=== PATIENT | female | born 1985 | race Caucasian/White ===

== ENCOUNTER 2021-10-31 08:59 | Outpatient (CLI) | payer BC, SELFPAY ==
[2021-10-31 10:03] LABS: Glucose 75GTT - Fasting 96 mg/dL (70-99)
[2021-10-31 10:19] LABS: Insulin 75GTT - Fasting 11.6 mU/L (2.6-37.6)
[2021-10-31 11:06] LABS: GGTP 14 U/L (5-55); Glucose 75GTT - 60 minutes 135 mg/dL (100-160)
[2021-10-31 11:06] LABS: Glucose 75GTT - 30 minutes 124 mg/dL (100-160)
[2021-10-31 11:07] LABS: Insulin 75GTT - 30 MIN 72.2 mU/L (Not Estab.)
[2021-10-31 11:23] LABS: Homocysteine 3.1 umol/L (3.2-10.7)
[2021-10-31 11:34] LABS: Insulin 75GTT - 60 min 90.7 mU/L (Not Estab)
[2021-10-31 12:53] LABS: Insulin 75GTT - 120 min 65.4 mU/L (Not Estab.)
[2021-10-31 13:00] LABS: Glucose 75GTT - 120 minutes 98 mg/dL (70-140)
[2021-11-07 01:06] LABS: Factor VIII Activity 64 % (56-140); von Willebrand Factor (vWF) Ag 100 % (50-200); von Willebrand Factor Activity 55 % (50-200)
[2021-11-07 14:29] LABS: Thyroid Peroxidase AB < 8 IU/mL (0-34); VWD Studies Interp Report Note (.)
== END 2021-10-31 23:59 | disposition home or self-care (01) ==
LOC: WOBLAB 09:04
PROVIDERS: Visit Provider Obstetrics & Gynecology
DX: E53.9 Vitamin B deficiency, unspecified (principal); E03.9 Hypothyroidism, unspecified; N92.0 Excessive and frequent menstruation with regular cycle; E78.2 Mixed hyperlipidemia; E28.8 Other ovarian dysfunction; R94.5 Abnormal results of liver function studies; Z82.49 Family history of ischemic heart disease and other diseases of the circulatory system; Z67.90 Unspecified blood type, Rh positive
CPT/HCPCS: 36415; 81291; 82951; 82952; 82977; 83090; 83525; 83921; 85240; 85245; 85246; 86141; 86376; 86900; 86901

== ENCOUNTER 2021-11-06 16:01 | Outpatient (CLI) | payer BC, SELFPAY ==
--- NOTE | 2021-11-06 16:45 | MRI_ITS ---
STUDY: MR PELVIS WITH T WITHOUT CONTRAST REASON FOR EXAM: Female, 35 years old. DEEP SEEDED ENDOMETRIOSIS TECHNIQUE: Standardized fat and water weighted pulse sequences were obtained in all 3 orthogonal planes, pre-and post contrast administration. 20ml of Dot contrast material was administered intravenously for the contrast portion of the examination. COMPARISON: None. FINDINGS: Decompressed urinary bladder. Normal visualized small intestine. Normal visualized colon. Normal visualized uterus. Vaginal gel noted in the vaginal canal. The vaginal fornices are identified confirmed adequate amount of vaginal gel. Tiny air bubbles are noted in the gel. There is smooth margination of the exocervical contour. There are Nabothian cysts of the cervix. No evidence for cervical endometriosis. No evidence for vaginal endometriosis. There is minimal fluid within the cul-de-sac consistent with a normal physiologic pelvic fluid. There is no pelvic mass lesion or lymphadenopathy. There are physiologic follicles of both ovaries. 26 mm dominant right ovary cyst. There are no vaginal cysts. Normal visualized pelvic arteries. Normal osseous structures. Normal abdominal wall. MRI/Pelvis W/WO Contrast IMPRESSION: There are Nabothian cysts of the cervix. No evidence for cervical endometriosis. There are no vaginal cysts. No evidence for vaginal endometriosis. No Deep endometrial implants noted in the colon. Electronically Signed: Dank Cash MD at 18:32 EST ,
== END 2021-11-06 23:59 | disposition home or self-care (01) ==
PROVIDERS: Visit Provider Obstetrics & Gynecology
DX: N91.5 Oligomenorrhea, unspecified (principal); N94.10 Unspecified dyspareunia; N92.0 Excessive and frequent menstruation with regular cycle
CPT/HCPCS: 72197; A9575

== ENCOUNTER 2021-12-04 15:55 | Outpatient (CLI) | payer BC, SELFPAY ==
--- NOTE | 2021-12-04 | IMM_PTH ---
PATIENT: BOB GEORGE LOC: [facility] U#:[id number] AGE/SX: 36/F ROOM: RE12/04/[address]: Dr. Ramya Mackenzie MD : 1985 BED: DIS: 12/04/2021 SPEC #: [id number] RECD: 12/07/21 07:38 STATUS: NOEMI LEWIS #: [id number] NAGI: 12/04/21 00:[address]: Ramya Tracy DEPT: IMMUNOHISTOCHEMISTRY RECD BY: Kenya Garcia Tissues: Endometrium, NOS Procedures: CD138 (initial) PHYSICIAN & INSTITUTION [place] [id number] SPECIMEN INFORMATION: Tissue Source: Endometrial biopsy Clinical Info: Rule out endometritis Specimen Number: [id number] CPT code: 79518 METHODOLOGY: Deparaffinized sections of prefer/formalin-fixed tissue or PAP/DQ stained slides are incubated with monoclonal/polyclonal antibodies/oligonucleotide probes. Localization is made via biotin free immunoperoxidase method. Appropriate controls are performed and reacted as expected. 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 They may not have been cleared or approved by the [place]. Food and Drug Administration. The FDA has determined that such clearance or approval is not necessary. INTERPRETATION: Endometrial biopsy: Rare plasma cell present. AM:sharri 12/07/2021
--- NOTE | 2021-12-04 14:15 | EMB_PTH ---
PATIENT: BOB GEORGE LOC: [facility] U#:[id number] AGE/SX: 36/F ROOM: RE12/04/[address]: Dr. Ramya Mackenzie MD : 1985 BED: DIS: 12/04/2021 SPEC #: [id number] RECD: 12/04/21 16:15 STATUS: NOEMI LEWIS #: [id number] NAGI: 12/04/21 14:[address]: Ramya Tracy DEPT: SURGICAL PATHOLOGY RECD BY: Leanne Choi Tissues: Endometrium, NOS Procedures: Surgery Specimen Level IV HEADER OPERATION: Endometrial biopsy PRE-OP DIAGNOSIS: Check CD138, rule out endometritis TISSUE SUBMITTED: Endometrial biopsy MICROSCOPIC DIAGNOSIS Endometrium, biopsy: Transition endometrium. See comment. AM:sharri 12/06/2021 COMMENT There is no evidence of chronic endometritis. Clinical correlation is suggested. Immunohistochemistry ([id number]) supports the above diagnosis. MICROSCOPIC DESCRIPTION Slides are reviewed. GROSS DESCRIPTION Received in fixative is one container labeled with the patient's name and designated endometrial biopsy. The specimen consists of multiple irregular and elongated fragments of light andersen soft tissue that in aggregate measure 2 x 1.5 x 0.2 cm. The specimen is totally submitted in one cassette. / AM:sharri 12/05/2021 TC:5 [facility]: [id number]
== END 2021-12-04 23:59 | disposition home or self-care (01) ==
LOC: LABSPEC 16:04
PROVIDERS: Visit Provider Obstetrics & Gynecology
DX: R93.89 Abnormal findings on diagnostic imaging of other specified body structures (principal)
CPT/HCPCS: 88305; 88342